=== PATIENT | male | born 1960 | race Caucasian/White ===

== ENCOUNTER 2018-03-08 12:02 | Day surgery (SDC) | payer OTHER, SELFPAY ==
--- NOTE | 2018-03-08 | PATH_ITS ---
[facility] Accession Number: [id number] . 01 Material submitted: . PART A: POLYP AT 18CM PART B: RECTAL POLYP . 02 Diagnosis: A. Biopsy Colon Polyp at 18 cm: Hyperplastic polyp involving both biopsy fragments. . B. Biopsy Rectal Polyp: Hyperplastic polyp involving both biopsy fragments. MRV/03/09/2018 . 02 Electronically signed: . Chavo Vinson MD, Pathologist NPI- [id number] . 01 Gross description: . Received two formalin-filled containers, both labeled with the patient's name. . A. In a container labeled polyp at 18 cm are two 0.2-0.3 cm portions of tissue entirely submitted in cassette A. B. In a container labeled rectal polyp are two 0.2-0.3 cm portions of tissue entirely submitted in cassette B. ([facility] [place]:[id number] 1939) /MRV . 02 Pathologist provided ICD-10: K63.5 . 02 CPT . 088634, [id number] Performed at: 01 [facility] [address] [id number] MD Jake Hernandez MD Phone: [phone] Performed at: 02 [facility] [address] [place], [place] [id number] MD Gabino Babb MD Phone: [phone]
[2018-03-08 12:21] VITALS: BP 124/81; PULSE 83; RESP 16; TEMP 36.6; O2SAT 97; BMI 30.7
[2018-03-08] MEDS: SODIUM CHLORIDE 0.9% 1,000 ML 200 ML IV (12:27)
--- NOTE | 2018-03-08 12:58 | PM.HP.1 ---
History of Present Illness Date Patient Seen: 03/08/18 Time Patient Seen: 12:58 Chief complaint: [id number] Narrative: 57-year-old male who presents for colorectal screening. It has been 7 years since his last examination. He is uncertain whether he had polyps at that time or not. However, he was instructed to return in 5 years for repeat colonoscopy. He has no recent gastrointestinal complaints. Denies any nausea, vomiting, change in appetite, unexplained weight loss, abdominal pain, change in bowel habits, diarrhea, constipation, melena, hematochezia, or bright red blood per rectum. Patient History Medical History No significant past medical history (Acute) Surgical History History of colonoscopy (Acute) Family & Social History Social History: household members spouse Meds Home Medications Medication Instructions Recorded Confirmed Type No Known Home Medications 03/08/18 03/08/18 History Allergies Allergy/AdvReac Type Severity Reaction Status Date / Time No Known Drug Allergies Allergy Verified 03/08/18 12:16 Review of Systems Review of Systems All systems reviewed & are unremarkable except as noted in HPI and below Exam Vital Signs (past 8 hours): - 03/08/18 12:21 Temperature 97.8 F Pulse Rate 83 Respiratory Rate 16 Blood Pressure 124/81 H Pulse Oximetry 97 Oxygen Delivery Method Room Air Narrative Exam Narrative: Well-nourished well-developed mildly obese male in no acute distress. Alert oriented x3. accompanies him at the bedside for my entire visit Sclera nonicteric Chest clear to auscultation bilaterally with regular rate rhythm. No murmurs, gallops, rubs Abdomen is soft, nondistended, nontender, no masses Extremities show no clubbing, cyanosis, or edema Objective Labs Labs: No recent radiographic or laboratory studies for review Assessment & Plan (1) Screening for colorectal cancer: Current visit: Yes Status: Acute Plan: Assessment/Plan Narrative: 57-year-old male requiring colorectal screening since it has been 7 years from his prior examination. Colonoscopy is once again recommended. Technical details of the procedure were discussed. Risks, benefits, alternatives were explained. Risks including but not limited to sedation, aspiration, bleeding, pain, missed lesion, incomplete examination, need for further radiographic studies, colonic perforation, need for major abdominal surgery, and all attendant risks of major surgery were discussed at length. All questions were answered to his satisfaction, and he voiced understanding. Consent was placed on the chart. We will proceed as above.
--- NOTE | 2018-03-08 13:02 | PM.PREOP ---
Pre-operative Note Interval Note Pre-op Check: Yes History & Physical Reviewed by Physician, Yes Exam Performed and Yes History & Physical exam performed today by Physician Changes: No H&P completed within 30 days and has changed as indicated here:: Patient seen and examined today. History physical examination documented today on the chart. Proceed with colonoscopy as planned. ASA Class (for procedural sedation): I
[2018-03-08] MEDS: fentaNYL 250 MCG/5 ML INJ IV (13:09)
[2018-03-08] MEDS: MIDAZOLAM 5 MG/5 ML VIAL IV (13:11)
--- NOTE | 2018-03-08 13:30 | PM.OP.ENDO ---
Operative Date/Time/Diagnoses Date of procedure: 03/08/18 Time of procedure: 13:30 Pre-op diagnosis: Colorectal screening Post-op diagnosis: other (Colon polyps) Procedure & Clinicians Study performed: 1. Sedation per surgeon 2. Colonoscopy with cold forceps polypectomies Same procedure as scheduled: Yes Indications: 57-year-old male who last underwent colorectal screening 7 years ago. He presents now for surveillance. Colonoscopy is once again recommended. Surgeon: Kota Tapia Procedure Notes SCOAP/Timeout: Yes Procedure in detail: After obtaining informed consent, the patient was brought to the GI suite and placed in the left lateral decubitus position on the examination table. After placement of appropriate monitors, the patient was given incremental doses of Versed and Fentanyl until an appropriate level of sedation was achieved. A time out was held per SCOAP protocol. A digital rectal examination was performed and did not reveal any masses or obstructing lesions. The colonoscope was gently passed into the patient's anus and the entire colon navigated to the level of the cecum with minimal difficulty. Once in the cecum, the scope was withdrawn being sure to go before and beyond all mucosal folds and prominences and get an excellent examination. The findings are noted above. At the level of the rectal vault, the scope was retroflexed and the internal anal canal was examined. The scope was straightened and air aspirated from the colon. The instrument was removed from the patient's body and the procedure was concluded. The patient was allowed to awaken from sedation without difficulty and taken to the post-anesthesia care unit in good condition. Scope withdrawal time: 9:12 min Sedation minutes: 23 Findings: polyp Specimen(s): other (1. Colon polyp at 18 cm 2. Rectal polyp) Complications: none Recommendations: Colonscopy in 5 years, High fiber diet and Will call with biopsy results Plan for aftercare: 1. Discharged home Follow up: as needed Disposition: PACU
[2018-03-08 13:40] VITALS: BP 114/64; PULSE 79; RESP 18; TEMP 36.9; O2SAT 95
--- NOTE | 2018-03-08 14:05 | SUR.PHASEII ---
pt awake on arrival, bypassed pacu, ready to go, pt d/c'ed in stable condition.
== END 2018-03-08 14:00 | disposition home or self-care (01) ==
PROVIDERS: Visit Provider Surgery
PROC: 0DJD8ZZ Inspection of Lower Intestinal Tract, Via Natural or Artificial Opening Endoscopic (ICD-10-PCS; CPT 45378; principal; 2018-03-08 13:00)
DX: Z12.11 Encounter for screening for malignant neoplasm of colon (principal); K62.1 Rectal polyp
CPT/HCPCS: 45380; 88305; 99152; 99153; J2250; J3010

== ENCOUNTER 2021-09-07 07:03 | Observation (INO) | payer OTHER, SELFPAY ==
[2021-09-07] VITALS (13 sets, daily range): BP systolic 120–136; BP diastolic 65–75; PULSE 82–95; RESP 16–28; TEMP 36–37.4; O2SAT 90–97; BMI 30.7; BMI 31.6
--- NOTE | 2021-09-07 07:17 | ED.SOB ---
HPI - SOB/Dyspnea General Chief Complaint: Shortness of Breath/Dyspnea Stated Complaint: covid+/fever/light headed/sob x14 days Time Seen by Provider: 09/07/21 07:16 History of Present Illness HPI Narrative: Patient is a 61-year-old male who denies any past medical history but does not go to doctors presenting with known COVID an increasing shortness of breath. He is not vaccinated. States he started having symptoms about 12 days ago and tested positive on a home test. He has since had continued body aches and increasing shortness of breath with exertion. This morning his shortness of breath with exertion was worse than normal. He denies any pain he is complaining of body aches. He initially is 90% on room air however while walking to his room his O2 dropped to 85%. Related Data Home Medications Medication Instructions Recorded Confirmed No Known Home Medications 03/08/18 09/07/21 Allergies Allergy/AdvReac Type Severity Reaction Status Date / Time No Known Drug Allergies Allergy Verified 09/07/21 11:59 Review of Systems Review of Systems Narrative: GENERAL: See HPI HEENT: Denies sinus pain, ear pain, sore throat, difficulty swallowing, neck pain RESPIRATORY: See HPI CARDIOVASCULAR: Denies chest pain, palpitations, orthopnea, edema GASTROINTESTINAL: Denies nausea, vomiting, abdominal pain, diarrhea, constipation, melena. : Denies dysuria, frequency, incontinence, hematuria, urinary retention, flank pain. MUSCULOSKELETAL: Denies weakness, joint pain, or bony pain SKIN: No rash, no erythema, no pruritus NEUROLOGIC: Denies weakness, dizziness, headache, numbness, change in speech, confusion PSYCHIATRIC: No concerning psychosocial issues. 12 point review of systems is negative except for those stated above and HPI Patient History Medical History (Updated 09/07/21 @ 09:24 by Lian Mancilla DO) No significant past medical history Surgical History History of colonoscopy Social History household members: spouse Smoking Status: Former smoker alcohol intake: never Exam Initial Vital Signs Initial Vital Signs: Vital Signs Temperature 99.3 F 09/07/21 07:18 Pulse Rate 95 H 09/07/21 07:18 Respiratory Rate 28 H 09/07/21 07:18 Blood Pressure 136/71 01/25/22 07:18 Pulse Oximetry 90 L 09/07/21 07:18 GENERAL: Alert 61-year-old male does not appear in any acute respiratory distress HEENT: Head atraumatic,EOMI, pupils reactive, face symmetric, moist mucous membranes CARDIOVASCULAR: Regular rate and rhythm without murmurs, rubs or gallops. RESPIRATORY: Breath sounds equal bilaterally, no wheezes rales or rhonchi. ABDOMEN: Soft, nontender. Normoactive bowel sounds all 4 quadrants. No guarding or rebound. EXTREMITIES: Normal range of motion, no clubbing or edema. Neurovascularly intact NEUROLOGICAL: Alert and oriented x4.Normal gait and speech. SKIN: Warm, dry, no laceration, no petechiae, no rashes or lesions. Course Orders Ordered: ED Orders 09/07/21 14:50 Blood Culture Stat Acetaminophen (Acetaminophen 325 Mg Tablet) 650 mg PO Q6HR PRN PRN Reason: Fever/Mild Pain (1-3) Dexamethasone (Dexamethasone 10 Mg/Ml Vial) 6 mg IV DAILY [facility] Enoxaparin Sodium (Enoxaparin 40 Mg/0.4 Ml Syringe) 40 mg SUBCUT DAILY [facility] Remdesivir 100 mg/ Sodium (Chloride) 250 mls @ 250 mls/hr IV DAILY [facility] Stop: 09/11/21 09:59 Ondansetron HCl (Ondansetron 4 Mg/2 Ml Inj) 4 mg IV Q8HR PRN PRN Reason: Nausea And Vomiting Sodium Chloride (Sodium Chloride 0.9% Flush) 10 ml IV PRN PRN PRN Reason: Flush Sodium Chloride (Sodium Chloride 0.9% Flush) 10 ml IV BID [facility] Discontinued Medications Dexamethasone (Dexamethasone 10 Mg/Ml Vial) 6 mg IV NOW ONE Stop: 09/07/21 07:18 Last Admin: 09/07/21 07:44 Dose: 6 mg Documented by: JONH Remdesivir 200 mg/ Sodium (Chloride) 250 mls @ 250 mls/hr IV NOW ONE Stop: 09/07/21 09:59 Last Infusion: 09/07/21 11:22 Dose: 0 mls/hr Documented by: Admin: 09/07/21 09:29 Dose: 250 mls/hr Documented by: JONH Vital Signs Vital signs: Vital Signs - 8 hr 09/07/21 10:00 09/07/21 10:30 09/07/21 11:00 Pulse Rate 89 92 H 87 Pulse Oximetry 96 94 96 MDM - SOB/Dyspnea Lab Data Result diagrams: 09/07/21 07:40 09/07/21 07:40 Labs: Lab Results 09/07/21 09/07/21 09/07/21 Range/Units 07:40 07:40 07:40 WBC 3.5 L (4.5-11.0) X10^3/uL RBC 5.01 (4.5-5.9) X10^6/uL Hgb 15.1 (13.5-17.5) g/dL Hct 43.0 (41-53) % MCV 85.9 (80-100) fL MCH 30.1 (26-34) PG MCHC 35.0 (30-36) % RDW 12.7 (11.6-14.8) % Plt Count 173 (150-400) X10^3/uL Neut % (Auto) 77.1 H (50-75) % Lymph % (Auto) 14.1 L (25-40) % [place] % (Auto) 8.5 (3-14) % Eos % (Auto) 0.1 L (2-4) % Baso % (Auto) 0.2 (0-2) % Neut # (Auto) 2700 (9727-7664) /uL Lymph # (Auto) 500 L (0082-7428) /uL [place] # (Auto) 300 (0-900) /uL Eos # (Auto) 0 (0-450) /uL Baso # (Auto) 0 (0-100) /uL D-Dimer 577 H (<230) ng/mL Sodium (137-145) mmol/L Potassium (3.4-5.1) mmol/L Chloride (98-107) mmol/L Carbon Dioxide (22-32) mmol/L BUN (9-20) mg/dL Creatinine (0.66-1.25) mg/dL Estimated GFR (>60) mL/min BUN/Creatinine Ratio (6-22) Glucose (80-110) mg/dL Calcium (8.4-10.2) mg/dL Total Bilirubin (0.2-1.3) mg/dL AST (17-59) IU/L ALT (<50) IU/L Alkaline Phosphatase (38-126) U/L Total Creatine Kinase (55-170) U/L CK-MB (CK-2) CK-MB (CK-2) Rel Index Troponin I (0.01-0.034) ng/mL Total Protein (6.3-8.2) g/dL Albumin (3.5-5.0) g/dL Globulin (1.7-4.1) g/dL Albumin/Globulin Ratio (1.0-2.8) Procalcitonin 0.13 (<0.5) ng/mL SARS-CoV-2 (PCR) (Negative) 09/07/21 09/07/21 Range/Units 07:40 07:40 WBC (4.5-11.0) X10^3/uL RBC (4.5-5.9) X10^6/uL Hgb (13.5-17.5) g/dL Hct (41-53) % MCV (80-100) fL MCH (26-34) PG MCHC (30-36) % RDW (11.6-14.8) % Plt Count (150-400) X10^3/uL Neut % (Auto) (50-75) % Lymph % (Auto) (25-40) % [place] % (Auto) (3-14) % Eos % (Auto) (2-4) % Baso % (Auto) (0-2) % Neut # (Auto) (0382-6585) /uL Lymph # (Auto) (2440-6416) /uL [place] # (Auto) (0-900) /uL Eos # (Auto) (0-450) /uL Baso # (Auto) (0-100) /uL D-Dimer (<230) ng/mL Sodium 133 L (137-145) mmol/L Potassium 3.5 (3.4-5.1) mmol/L Chloride 101 (98-107) mmol/L Carbon Dioxide 27 (22-32) mmol/L BUN 21 H (9-20) mg/dL Creatinine 1.01 (0.66-1.25) mg/dL Estimated GFR > 60.0 (>60) mL/min BUN/Creatinine Ratio 20.8 (6-22) Glucose 139 H (80-110) mg/dL Calcium 8.4 (8.4-10.2) mg/dL Total Bilirubin 0.8 (0.2-1.3) mg/dL AST 54 (17-59) IU/L ALT 26 (<50) IU/L Alkaline Phosphatase 55 (38-126) U/L Total Creatine Kinase 79 (55-170) U/L CK-MB (CK-2) TNP CK-MB (CK-2) Rel Index TNP Troponin I < 0.012 (0.01-0.034) ng/mL Total Protein 7.1 (6.3-8.2) g/dL Albumin 3.8 (3.5-5.0) g/dL Globulin 3.3 (1.7-4.1) g/dL Albumin/Globulin Ratio 1.2 (1.0-2.8) Procalcitonin (<0.5) ng/mL SARS-CoV-2 (PCR) Positive H (Negative) Imaging Data Chest x-ray: Radiologist's Impression: PROCEDURE:? XR CHEST 1V ? INDICATIONS:? covid ? TECHNIQUE:? One view of the chest was acquired.? ? COMPARISON:? None. ? FINDINGS:? ? Surgical changes and devices:? None.? ? Lungs and pleura:? Subtle patchy airspace opacities are seen scattered in bilateral mid to lower lung naranjo.? No pleural effusions or pneumothorax.? ? Mediastinum:? Mediastinal contours appear normal.? Heart size is normal.? ? Bones and chest wall:? No suspicious bony lesions.? Overlying soft tissues appear unremarkable.? ? IMPRESSION:? Finding is suggestive of subtle bilateral mid to lower lung field patchy infiltrates possibly secondary to COVID-19 infection.? No pleural effusion or pneumothorax. ? ? Dictated by: Albino Hernandez M.D. on 09/07/2021 at 8:42 ? ? Approved by: Albino Hernandez M.D. on 09/07/2021 at 8:43 ECG Data Interpretation: Normal sinus rhythm rate 97 AL interval 144 QRS [address] changes MDM Narrative Medical decision making narrative: Patient is COVID positive with borderline hypoxia. At this time he agrees to remdesivir and dexamethasone along with admission. Dr. Boyce, updated patient symptoms test results and accepts patient Discharge Plan Departure Patient Disposition: Admitted As Inpatient Clinical Impression: COVID-19 Admit Date/Time: 09/07/21 11:00 Admit Provider: Slick Boyce
--- NOTE | 2021-09-07 07:18 | DI.RAD.S_ITS ---
PROCEDURE: XR CHEST 1V INDICATIONS: covid TECHNIQUE: One view of the chest was acquired. COMPARISON: None. FINDINGS: Surgical changes and devices: None. Lungs and pleura: Subtle patchy airspace opacities are seen scattered in bilateral mid to lower lung n[place]jo. No pleural effusions or pneumothorax. Mediastinum: Mediastinal contours appear normal. Heart size is normal. Bones and chest wall: No suspicious bony lesions. Overlying soft tissues appear unremarkable. IMPRESSION: Finding is suggestive of subtle bilateral mid to lower lung field patchy infiltrates possibly secondary to COVID-19 infection. No pleural effusion or pneumothorax. Dictated by: Albino Hernandez M.D. on 09/07/2021 at 8:42 Approved by: Albino Hernandez M.D. on 09/07/2021 at 8:43
[2021-09-07] MEDS: DEXAMETHASONE 10 MG/ML VIAL 6 MG IV (07:44)
--- NOTE | 2021-09-07 07:46 | PC.NURSE ---
SpO2 ~90% at rest, 85% with ambulation on room air.
[2021-09-07 08:04] LABS: COVID19 -Nasal RAPID POSITIVE (Negative)
[2021-09-07 08:09] LABS: Add Manual Diff / Slide Review NO; Basophils Absolute Auto 0 /uL (0-100); Basophils Percent Auto 0.2 % (0-2); Eosinophils Absolute Auto 0 /uL (0-450); Eosinophils Percent Auto 0.1 % (2-4); Hemoglobin 15.1 g/dL (13.5-17.5); Lymphocytes Absolute Auto 500 /uL (1100-4500); Lymphocytes Percent Auto 14.1 % (25-40); Mean Corpuscular Hemoglobin 30.1 PG (26-34); Mean Corpuscular Volume 85.9 fL (80-100); Monocytes Absolute Auto 300 /uL (0-900); Monocytes Percent Auto 8.5 % (3-14); Neutrophils Absolute Auto 2700 /uL (1500-7000); Neutrophils Percent Auto 77.1 % (50-75); Platelet Count 173 X10^3/uL (150-400); Red Blood Cell Count 5.01 X10^6/uL (4.5-5.9); Red Cell Distribution Width 12.7 % (11.6-14.8); White Blood Cell Count 3.5 X10^3/uL (4.5-11.0)
[2021-09-07 08:27] LABS: D Dimer 577 ng/mL (<230)
[2021-09-07 08:28] LABS: Alanine Aminotransferase 26 IU/L (<50); Albumin 3.8 g/dL (3.5-5.0); Albumin Globulin Ratio 1.2 (1.0-2.8); Alkaline Phosphatase 55 U/L (38-126); Aspartate Aminotransferase 54 IU/L (17-59); BUN Creatinine Ratio 20.8 (6-22); Bilirubin Total 0.8 mg/dL (0.2-1.3); Blood Urea Nitrogen 21 mg/dL (9-20); Calcium 8.4 mg/dL (8.4-10.2); Carbon Dioxide 27 mmol/L (22-32); Chloride 101 mmol/L (98-107); Creatine Kinase 79 U/L (55-170); Estimated Glomerular Filt Rate > 60.0 mL/min (>60); Globulin 3.3 g/dL (1.7-4.1); Glucose 139 mg/dL (80-110); HEMOLYSIS < 15 (0-50); Potassium 3.5 mmol/L (3.4-5.1); Sodium 133 mmol/L (137-145); Total Protein 7.1 g/dL (6.3-8.2)
[2021-09-07 08:40] LABS: Troponin I < 0.012 ng/mL (0.01-0.034)
[2021-09-07 08:45] LABS: Procalcitonin 0.13 ng/mL (<0.5)
--- NOTE | 2021-09-07 09:10 | PC.NURSE ---
Pt agrees to Remdesivir. Provider aware.
[2021-09-07] MEDS: REMDESIVIR 200 MG in SODIUM CHLORIDE 0.9% 210 ML 250 ML IV (09:29)
--- NOTE | 2021-09-07 17:12 | PC.NURSE ---
Pt arrived from ED. VSS, afebrile. Noted some SOB with ambulation to BR, and intermittent cough. Observed that he maintained 90's 02 sat with ambulation and upon reassessment after some deep breathing 02 sats 97% on RA. LS clear but tight in bases. Pt reports he didn't feel as SOB as he did previously today. He is encouraged to use IS. Pt requested tylenol for some body aching this evening. Good po intake observed. BCX pending. Continuous monitoring.
[2021-09-07] MEDS: ACETAMINOPHEN 325 MG TABLET 650 MG PO ×2 (17:40→23:33)
--- NOTE | 2021-09-07 18:11 | P.HP_ITS ---
History of Present Illness History of Present Illness Chief complaint: covid+/fever/light headed/sob x14 days Narrative: Mr. Garg is a 61M with no known PMH who presents with shortness of breath. He is unvaccinated. He began having symptoms nearly two week ago, and tested positive at home. He has had worse body aches, shortness of breath. In the ED workup was done, vitals notable for O2 sat 90%, down to 85% with activity. WBC 3.5, na 133. D-dimer 577. Procal 0.13. COVID positive. Chest xray showed bilateral infiltrates. He was ordered for remdesivir and dexamethasone and he was admitted for further treatment. Patient History Medical History No significant past medical history Surgical History History of colonoscopy Family & Social History Social History: household members spouse Prior Living Arrangements House Safety & Behavioral: Feels Safe in Current Yes Environment Been Physically Hurt or No Threatened By a Person Suicidal Ideation Description None Suicide Plan Description No Plan Tobacco & Substance use: Tobacco type cigarettes Smoking Status Former smoker alcohol intake never Substance Use Type does not use Meds Home Medications and Allergies Home Medications Medication Instructions Recorded Confirmed Type No Known Home Medications 03/08/18 09/07/21 History Allergies Allergy/AdvReac Type Severity Reaction Status Date / Time No Known Drug Allergies Allergy Verified 09/07/21 11:59 Review of Systems Review of Systems Narrative: 14 systems reviewed and negative aside from what is noted in HPI Exam Vital Signs (past 8 hours): - 09/07/21 10:30 09/07/21 11:00 09/07/21 12:13 Temperature 96.8 F L Pulse Rate 92 H 87 84 Respiratory Rate 18 Blood Pressure 136/75 Pulse Oximetry 94 96 97 Oxygen Delivery Method Room Air Narrative Exam Narrative: GEN: no acute distress HEENT: moist mucous membranes, PERR NECK: trachea midline, no JVD PULM: clear bilaterally, no wheezes, poor air movement ABD: soft, nontender, nondistended, no organomegaly EXT: warm and well perfused with no edema NEURO: awake, alert, oriented, no focal deficits PSYCH: pleasant Objective Labs Result Diagrams: 09/07/21 07:40 09/07/21 07:40 Labs: Laboratory Results - last 24 hr 09/07/21 09/07/21 09/07/21 07:40 07:40 07:40 WBC 3.5 L RBC 5.01 Hgb 15.1 Hct 43.0 MCV 85.9 MCH 30.1 MCHC 35.0 RDW 12.7 Plt Count 173 Neut % (Auto) 77.1 H Lymph % (Auto) 14.1 L [place] % (Auto) 8.5 Eos % (Auto) 0.1 L Baso % (Auto) 0.2 Neut # (Auto) 2700 Lymph # (Auto) 500 L [place] # (Auto) 300 Eos # (Auto) 0 Baso # (Auto) 0 D-Dimer 577 H Sodium Potassium Chloride Carbon Dioxide BUN Creatinine Estimated GFR BUN/Creatinine Ratio Glucose Calcium Total Bilirubin AST ALT Alkaline Phosphatase Total Creatine Kinase CK-MB (CK-2) CK-MB (CK-2) Rel Index Troponin I Total Protein Albumin Globulin Albumin/Globulin Ratio Procalcitonin 0.13 SARS-CoV-2 (PCR) 09/07/21 09/07/21 07:40 07:40 WBC RBC Hgb Hct MCV MCH MCHC RDW Plt Count Neut % (Auto) Lymph % (Auto) [place] % (Auto) Eos % (Auto) Baso % (Auto) Neut # (Auto) Lymph # (Auto) [place] # (Auto) Eos # (Auto) Baso # (Auto) D-Dimer Sodium 133 L Potassium 3.5 Chloride 101 Carbon Dioxide 27 BUN 21 H Creatinine 1.01 Estimated GFR > 60.0 BUN/Creatinine Ratio 20.8 Glucose 139 H Calcium 8.4 Total Bilirubin 0.8 AST 54 ALT 26 Alkaline Phosphatase 55 Total Creatine Kinase 79 CK-MB (CK-2) TNP CK-MB (CK-2) Rel Index TNP Troponin I < 0.012 Total Protein 7.1 Albumin 3.8 Globulin 3.3 Albumin/Globulin Ratio 1.2 Procalcitonin SARS-CoV-2 (PCR) Positive H Assessment & Plan Assessment & Plan narrative: Mr. Garg came in with respiratory failure due to COVID pneumonia. 1. Acute hypoxemic respiratory failure secondary to COVID pneumonia -he is unfortunately unvaccinated -desat to 80s with activity -cxray shows bilateral infiltrates -oxygen PRN to keep sat >90% -ordered for IV remdesivir, dexamethasone -feels much improved since admission -encourage proning CODE: Full Proxy: China Garg, I have utilized all available resources to reconcile patient's home medications. Time Spent With Patient Critical Care time: I spent a total of [] minutes of critical care time on this patient's care to day; this time is exclusive of procedural time. Quality MIPS - Admit I confirm the patient?s Advance Care Plan is present, Code status is documented, Surrogate decision maker is in patient?s record [If Yes, STOP here]: Yes
[2021-09-07] MEDS: SODIUM CHLORIDE 0.9% FLUSH 10 ML IV (21:58)
[2021-09-08 05:30] VITALS: BP 117/77; PULSE 82; RESP 18; TEMP 36.6; O2SAT 92
--- NOTE | 2021-09-08 06:13 | PC.NURSE ---
Patient maintained oxygen sats of 92% RA through the night, this morning he was at 89-90% RA. After using the bathroom he became short of breath with exertion desatting to 80% on RA. Patient placed on 2L oxygen via nasal canula, sats increased to 94%. Patient did some deep breathing with incentive spirometer and encouraged to continue use of IS.
[2021-09-08 06:20] LABS: Add Manual Diff / Slide Review NO; Basophils Absolute Auto 0 /uL (0-100); Basophils Percent Auto 0.2 % (0-2); Eosinophils Absolute Auto 0 /uL (0-450); Hematocrit 41.3 % (41-53); Hemoglobin 14.6 g/dL (13.5-17.5); Lymphocytes Absolute Auto 600 /uL (1100-4500); Lymphocytes Percent Auto 13.2 % (25-40); Mean Corpuscular HGB Conc 35.3 % (30-36); Mean Corpuscular Hemoglobin 30.3 PG (26-34); Mean Corpuscular Volume 85.9 fL (80-100); Monocytes Absolute Auto 500 /uL (0-900); Monocytes Percent Auto 10.3 % (3-14); Neutrophils Absolute Auto 3500 /uL (1500-7000); Neutrophils Percent Auto 76.3 % (50-75); Platelet Count 183 X10^3/uL (150-400); Red Blood Cell Count 4.81 X10^6/uL (4.5-5.9); Red Cell Distribution Width 12.7 % (11.6-14.8); White Blood Cell Count 4.6 X10^3/uL (4.5-11.0)
[2021-09-08 06:26] LABS: BUN Creatinine Ratio 29.1 (6-22); Blood Urea Nitrogen 25 mg/dL (9-20); Calcium 8.5 mg/dL (8.4-10.2); Carbon Dioxide 31 mmol/L (22-32); Chloride 101 mmol/L (98-107); Estimated Glomerular Filt Rate > 60.0 mL/min (>60); Glucose 138 mg/dL (80-110); HEMOLYSIS < 15 (0-50); Potassium 4.1 mmol/L (3.4-5.1); Sodium 136 mmol/L (137-145)
--- NOTE | 2021-09-08 08:57 | PC.NURSE ---
pt refused heart healthy diet. placed an order for general diet.
[2021-09-08] MEDS: REMDESIVIR 100 MG in SODIUM CHLORIDE 0.9% 230 ML 250 ML IV (09:03)
[2021-09-08] MEDS: ENOXAPARIN 40 MG/0.4 ML SYRINGE SUBCUT (09:03)
[2021-09-08 09:04] VITALS: O2SAT 93
[2021-09-08] MEDS: SODIUM CHLORIDE 0.9% FLUSH 10 ML IV (09:04)
[2021-09-08] MEDS: DEXAMETHASONE 10 MG/ML VIAL 6 MG IV (09:04)
[2021-09-08 10:00] VITALS: BP 116/70; PULSE 85; RESP 16; TEMP 36.3; O2SAT 94
--- NOTE | 2021-09-08 13:52 | P.DS_ITS ---
History of Present Illness History of Present Illness Chief complaint: covid+/fever/light headed/sob x14 days Narrative: Mr. Garg is a 61M with no known PMH who presents with shortness of breath. He is unvaccinated. He began having symptoms nearly two week ago, and tested positive at home. He has had worse body aches, shortness of breath. In the ED workup was done, vitals notable for O2 sat 90%, down to 85% with activity. WBC 3.5, na 133. D-dimer 577. Procal 0.13. COVID positive. Chest xray showed bilateral infiltrates. He was ordered for remdesivir and dexamethasone and he was admitted for further treatment. Discharge Providers Provider Date of admission: 09/07/21 11:00 Discharge Date: 09/08/21 Primary care physician: Thomas Storey MD Consults: 09/08/21 15:23 Consult to Respiratory Therapy Evaluate & Treat Comment: home o2 eval Physician Instructions: Evaluate and treat Discharge provider: Slick Boyce MD Summary Hospital Course Discharge Diagnosis: 1. Acute hypoxemic respiratory failure secondary to COVID pneumonia Hospital Course: Mr. Garg was admitted with cough and hypoxemia. He was slightly short of breath. He felt improved with treatments with remdesivir and dexamethasone. He did desat to the 80s with activity and was ordered for home oxygen. He is recommended to isolate for another week. [facility]. Exam Vital Signs (past 8 hours): Oxygen Delivery Method Nasal Cannula Oxygen Flow Rate 1 Narrative Exam Narrative: GEN: no acute distress HEENT: moist mucous membranes, PERR NECK: trachea midline, no JVD PULM: clear bilaterally, no wheezes ABD: soft, nontender, nondistended, no organomegaly EXT: warm and well perfused with no edema NEURO: awake, alert, oriented, no focal deficits PSYCH: pleasant Objective Labs Result Diagrams: 09/08/21 06:00 09/08/21 06:00 [facility] Medical History No significant past medical history Surgical History History of colonoscopy Social History household members: spouse Smoking Status: Former smoker alcohol intake: never Discharge Plan Discharge Plan Patient Disposition: Home Provider Discharge Comment: Mr. Garg came in with COVID pneumonia. He was unvaccinated. He improved with treatment. He will be discharged with dexam ethasone. He should avoid interacting with anyone else as much as possible for a week to not get others infected. He is recommended to get the COVID vaccine when he is asymptomatic. He is oxygenation was greater than 90% at rest, with activity he did drop in to the 80s, which improved with 2L oxygen. Discharge orders & Medications Prescriptions: New dexamethasone 6 mg tablet 6 mg PO DAILY Qty: 5 0RF Follow up/Referrals: Thomas Storey MD [Primary Care Provider] - Diet/Activity/Treatments Diet: Regular Visit Report/Discharge Packet Instructions: DI for COVID-19 (Suspected or Confirmed ) Discharge Data Primary Care Provider: Thomas Storey Attending Provider: Slick Boyce
--- NOTE | 2021-09-08 14:55 | CM.DANOTE ---
Addendum entered by ALVARADO Flores 09/08/21 15:53: ADD: Per , pt medically stable to d/c home this evening and no barriers to discharge. Pt will d/c home tonight after SW shift (which is ending right now). No SW needs at this time. BF Original Note: Patient is a 61 yo male who was admitted on 09/07/21 for COVID+ increased symptoms. Pt has [email or web address] for insurance and his PCP is Thomas Storey. EMR was reviewed. Per MD, pt is Unvaccinated for COVID19 and tested positive for COVID a little over a week ago and has had increased respiratory symptoms and admitted for tx. Per RN and RT, pt has mostly been able to tolerate room air but needs 2L02 for exertion. Pt independent in room. SW called pt via room phone and explained role due to COVID precautions and pt confirms he lives at home in [place] with his and has local supportive family. Pt and spouse are active and independent at baseline and spouse also was COVID+ but only had symptoms for about 4 days and now improved and will be able to provide transport home and assist pt at d/c if needed as she is back to baseline. Pt denies any hx of HH or SNF or home oxygen and pt just spoke to RT and aware that he may need home oxygen at d/c in case needed and he is agreeable if needed. Pt states he is feeling much better and preference would be to d/c home this evening if medically stable and does not anticipate any further needs. Plan: SW to follow closely for likely d/c home via spouse POV and possible new home oxygen when medically stable either today or tomorrow likely. SW to follow for any further identified needs. ALVARADO Flores Discharge Planning/Care Management CM Discharge Assessment Start: 09/08/21 14:52 Freq: Status: Active Protocol: Document 09/08/21 14:52 BF (Rec: 09/08/21 14:55 BF [id number]) Discharge Planning Assessment Assigned Commission Associate ALVARADO Bhardwaj DPOA/Assigned Designee Name spouse [place] Contact Information [phone] Advance Directives? No Advance Directives on File No History Provided By Patient,Medical Record Has Patient been admitted in last 30 No days? Prior Living Arrangements House Household Members spouse Type of transporation used prior to Drives own vehicle admit Independent with ADL's Yes Is patient alert and oriented? Yes Caregiver for Another No Barriers to Discharge No Discharge Plan Home Community Services Oxygen Therapy,Respiratory Therapy Transportation Arrangement Spouse able to provide transport at d/c Referrals Initiated Respiratory Therapy Additional Comment RT assessing for likely home oxygen at d/c Whiteboard Updated in Patient Room with Yes name and ext. # of Commission Associate Comment via phone Review Status In Process Please Provide Date Initial DC 09/08/21 Assessment Was Performed Next Review Type Continued Stay Review
--- NOTE | 2021-09-08 18:09 | PC.NURSE ---
discharge paper work and teaching done. script given to patient. O2 tank teaching done. pt waiting for to pick him up. IV needs to be dc'd.
--- NOTE | 2021-09-08 21:57 | PC.NURSE ---
Pt's S.O. informed staff that O2 system had been delivered and would be arriving to order picker/assembler patient in personal vehicle. Pt wheeled out by staff in wheelchair without IV access or tele, appropriately masked for COVID precautions. Entered vehicle safely in stable condition, VSS.
--- NOTE | 2021-09-13 13:40 | PC.NURSE ---
Late Entry: Remdesivir started @ 09:03, stopped at 1003
== END 2021-09-08 21:50 | disposition home or self-care (01) ==
LOC: ED 09:28 → AC 11:10
PROVIDERS: Admitting Provider Internal Medicine; Emergency Provider Emergency Medicine; Referring Provider Emergency Medicine; Visit Provider Internal Medicine
DX: U07.1 COVID-19 (principal); J12.82 Pneumonia due to coronavirus disease 2019; J96.01 Acute respiratory failure with hypoxia
CPT/HCPCS: 36415; 71045; 80048; 80053; 82550; 84145; 84484; 85025; 85379; 87040; 87635; 93005; 94618; 94760; 96365; 96366; 96372; 96375; 96376; 99284; C9803; G0378; J1100; J1650

== ENCOUNTER → 2022-11-07 07:57 | Outpatient (CLI) | payer OTHER, SELFPAY ==
[2021-09-07 12:00] VITALS: BMI 31.6
--- NOTE | 2022-11-07 | DI.ECHO.S_ITS ---
[facility] +---------+ : : [address] [place] : : : : [id number] : : : : Phone: [phone]+ Echocardiogram Report + + :Name: YOSI ASHRAF Study Date: 11/07/2022 Height: 71 in : :[facility] ReadingLocation: Weight: 225 lb : : Gender: Male BSA: 2.2 m2 : :: 1960 Age: 62 yrs BP: 118/76 mmHg: :Reason For Study: MURMUR HR: 75 : :Ordering Physician: TERI, : :GARRETT Performed By: DAMION [place] : :Referring: GARRETT WILLIAMSON : + + Interpretation Summary The ejection fraction is estimated to be 55-60%. Diastolic parameters suggest probable normal left ventricular diastolic function and normal filling pressures. The right ventricle is normal in size and function. Pulmonary artery pressures cannot be estimated because of the lack of a measurable TR jet velocity. No significant valvular abnormality. Procedure: A two-dimensional transthoracic echocardiogram with color flow and Doppler was performed. The study quality was technically adequate. There is no prior echocardiogram noted for this patient. The patient was in normal sinus rhythm during the exam. Left Ventricle: The left ventricle is normal in size and wall thickness. Left ventricular systolic function is normal. The ejection fraction is estimated to be 55-60%. Left ventricular wall motion is normal. Diastolic parameters suggest probable normal left ventricular diastolic function and normal filling pressures. Right Ventricle: The right ventricle is normal in size and function. Atria: Both atria are normal in size. There is no Doppler evidence for an interatrial shunt. Mitral Valve: The mitral valve leaflets are moderately calcified. There is mild mitral regurgitation. Aortic Valve: The aortic valve is slightly calcified. The aortic valve is trileaflet. The aortic valve opens well. There is no aortic valve stenosis. No aortic regurgitation is present. Tricuspid Valve: The tricuspid valve is normal in structure and function. No tricuspid regurgitation. Pulmonary artery pressures cannot be estimated because of the lack of a measurable TR jet velocity. Pulmonic Valve: The pulmonic valve is not well visualized. There is no pulmonic valvular regurgitation. Great Vessels: The aortic root is normal size. The ascending aorta is normal in size. The inferior vena cava was not visualized. Pericardium/ Pleura There is no pericardial effusion. There is no pleural effusion. MMode/2D Measurements & Calculations LVIDd: 3.6 cm LVOT diam: 2.0 cm LVIDs: 2.2 cm Ao root diam: 3.0 cm FS: 38.9 % asc Aorta Diam: 3.2 cm IVSd: 1.0 cm LVPWd: 0.90 cm LV rodriguez. diameter/BSA (cm/m^2): 1.6 LV sys. diameter/BSA (cm/m^2): 0.99 LA A4 area: 13.1 cm2 RA long axis: 4.5 cm RVD1 (basal): 3.6 cm LVLs ap4: 7.2 cm LVLd ap2: 8.8 cm TAPSE_phl: 1.7 cm LVLs ap2: 6.9 cm Doppler Measurements & Calculations Ao V2 max: 126.0 cm/sec LVOT Max Julian: 106.0 cm/sec Ao V2 mean: 98.4 cm/sec LV V1 max P.5 mmHg Ao max P.4 mmHg LV V1 VTI: 23.5 cm Ao mean P.0 mmHg CAITLIN(I,D): 2.8 cm2 Ao V2 VTI: 26.8 cm CAITLIN(V,D): 2.6 cm2 sev ratio: 0.88 CAITLIN indexed to BSA (cm^2/m^2): 1.2 MV E max julian: 81.0 cm/sec PA V2 max: 106.0 cm/sec MV A max julian: 78.4 cm/sec PA V2 mean: 81.3 cm/sec MV E/A: 1.0 PA mean P.0 mmHg Med Peak E' Julian: 6.1 cm/sec PA pr(Accel): 23.6 mmHg E/E' med: 13.3 Lat Peak E' Julian: 8.1 cm/sec E/E' lat: 10.0 E/e' average: 11.6 MV dec time: 0.21 sec SV(LVOT): 73.8 ml AV VR_phl: 0.84 CAITLIN(VTI)/BSA_phl: 1.2 MV P1/2t-pr_phl: 62.0 msec Reading Physician:DAVE
== END ==
PROVIDERS: Referring Provider Registered Nurse; Visit Provider Registered Nurse
DX: I34.0 Nonrheumatic mitral (valve) insufficiency (principal); R01.1 Cardiac murmur, unspecified
CPT/HCPCS: 93306